=== PATIENT | female | born 1950 | race African-American/Black ===

== ENCOUNTER 2018-06-10 22:15 | Inpatient (IN) | payer MEDICARE ==
[~2018-06-10] VITALS: Ht 162.6 cm; Wt 87.1 kg
[~2018-06-10 22:15] MED LIST: ATOR20TA PO; CALC-25 PO; CHOL100022 PO; DIAZ10TA4 PO; FURO-151 MT; HYDR-4001 PO; LEVO175T7 MT; METO25TA6 PO; OXYC20TA56 PO
[2018-06-11] MEDS ORDERED: ONDANSETRON HCL 4MG/2ML INJ IV STA (00:37)
[2018-06-11] MEDS ORDERED: MORPHINE SULFATE 2 MG/ML CPJ (NOT FOR IM USE) IV ONE ×2 (00:45→05:00)
[2018-06-11 07:17] LABS: BASOPHILS % 0.6 % (0.0-2.0); EOSINOPHILS % 1.2 % (0.0-5.0); HEMATOCRIT. 33.4 % (36.0-48.0); LYMPHOCYTES % 21.4 % (20.0-50.0); MEAN CORPUSCULAR HEMOGLOBIN 26.4 pg (28.0-32.0); MEAN CORPUSCULAR VOLUME 80.6 fL (81.0-99.0); MEAN PLATELET VOLUME 6.9 fl (7.4-10.4); MONOCYTES % 5.4 % (2.0-8.0); NEUTROPHILS % 71.4 % (40.0-76.0); PLATELET 406 x1000/uL (130-400); RED BLOOD CELL COUNT 4.14 mill/uL (4.2-5.4); RED CELL DISTRIBUTION WIDTH 17.7 % (11.6-14.6)
[2018-06-11 07:21] LABS: CHLORIDE 103 mEq/L (98-107)
[2018-06-11] MEDS ORDERED: MAGNESIUM/ALUMINUM HYDROXIDE/SIMETHICONE 30ML UDC PO PRN (07:45)
[2018-06-11] MEDS ORDERED: IPRATROPIUM/ALBUTEROL 0.5-3(2.5)MG/3ML NEB INH PRN (07:45)
[2018-06-11] MEDS ORDERED: CLONIDINE 0.1MG TABLET PO PRN (07:45)
[2018-06-11] MEDS ORDERED: DOCUSATE SODIUM 100MG CAPSULE PO PRN (07:45)
[2018-06-11] MEDS ORDERED: ACETAMINOPHEN 650MG/20.3ML UDC GT PRN (07:45)
[2018-06-11] MEDS ORDERED: ACETAMINOPHEN 650MG SUPP PR PRN (07:45)
[2018-06-11] MEDS ORDERED: ONDANSETRON HCL 4MG/2ML INJ IV PRN (07:45)
[2018-06-11] MEDS ORDERED: NA PHOS,M-B/NA PHOS,DI-BA ENEMA 118ML PR PRN (07:45)
[2018-06-11] MEDS ORDERED: GUAIFENESIN 200MG/10ML SUGAR FREE UDC PO PRN (07:45)
[2018-06-11] MEDS ORDERED: DIPHENHYDRAMINE 50MG/ML VIAL IV PRN (07:45)
[2018-06-11 08:00] VITALS: BP_SYST 126; BP_SYST 127; BP_DIAS 74; BP_DIAS 78
[2018-06-11] MEDS: HYDROCODONE/ACETAMINOPHEN 5/325MG TABLET PO PRN ×4 (08:24→23:44)
[2018-06-11 09:00] VITALS: BP 126/74
[2018-06-11] MEDS: ENOXAPARIN 40MG/0.4ML SYR SUBCUT SCH (10:43)
[2018-06-11] MEDS: ACETAMINOPHEN 325MG TABLET PO PRN ×2 (10:46→17:13)
[2018-06-11 12:00] VITALS: BP 116/62
[2018-06-11] MEDS: SODIUM CHLORIDE 0.9% INJ 3ML FLUSH IVF SCH ×2 (13:41→22:00)
[2018-06-11 16:00] VITALS: BP 115/59
[2018-06-11] MEDS: PREDNISOLONE ACETATE 1% OPHTH DROPS 1ML LEFTEYE SCH ×2 (17:07→23:45)
[2018-06-11] MEDS: GENTAMICIN 0.3% OPHTH DROPS 5ML LEFTEYE SCH ×3 (17:07→23:48)
[2018-06-11 20:00] VITALS: BP 114/57
[2018-06-12 04:00] VITALS: BP_SYST 123; BP_SYST 137; BP_DIAS 72; BP_DIAS 82
[2018-06-12] MEDS: HYDROCODONE/ACETAMINOPHEN 5/325MG TABLET PO PRN ×3 (04:05→14:25)
[2018-06-12] MEDS: GENTAMICIN 0.3% OPHTH DROPS 5ML LEFTEYE SCH ×4 (04:06→16:08)
[2018-06-12] MEDS: SODIUM CHLORIDE 0.9% INJ 3ML FLUSH IVF SCH ×2 (06:00→14:00)
[2018-06-12] MEDS: PREDNISOLONE ACETATE 1% OPHTH DROPS 1ML LEFTEYE SCH ×2 (07:12→12:56)
[2018-06-12 08:00] VITALS: BP 135/78
[2018-06-12 08:02] LABS: BASOPHILS % 0.2 % (0.0-2.0); EOSINOPHILS % 1.5 % (0.0-5.0); HEMATOCRIT. 34.1 % (36.0-48.0); LYMPHOCYTES % 19.2 % (20.0-50.0); MEAN CORPUSCULAR HEMOGLOBIN 25.9 pg (28.0-32.0); MEAN CORPUSCULAR VOLUME 80.6 fL (81.0-99.0); MEAN PLATELET VOLUME 7.2 fl (7.4-10.4); MONOCYTES % 6.5 % (2.0-8.0); NEUTROPHILS % 72.6 % (40.0-76.0); PLATELET 404 x1000/uL (130-400); RED BLOOD CELL COUNT 4.23 mill/uL (4.2-5.4); RED CELL DISTRIBUTION WIDTH 17.4 % (11.6-14.6)
[2018-06-12] MEDS: ENOXAPARIN 40MG/0.4ML SYR SUBCUT SCH (08:33)
[2018-06-12 08:40] LABS: CHLORIDE 104 mEq/L (98-107)
[2018-06-12 08:50] LABS: LDL CHOLESTEROL 61 mg/dL (5-100)
[2018-06-12 08:52] LABS: HDL CHOLESTEROL 46 mg/dL (40-59)
[2018-06-12] MEDS: ACETAMINOPHEN 325MG TABLET PO PRN (11:58)
[2018-06-12 12:00] VITALS: BP 121/80
[2018-06-12 15:45] VITALS: BP 135/80
[2018-06-12 16:00] VITALS: BP 150/78
[2018-06-12] MEDS ORDERED: HYDROCODONE/ACETAMINOPHEN 10/325MG TABLET PO SCH (16:00)
[2018-06-12 16:09] VITALS: BP 150/78
[2018-06-12 17:46] LABS: BASOPHILS % 0.2 % (0.0-2.0); EOSINOPHILS % 2.5 % (0.0-5.0); HEMATOCRIT. 35.6 % (36.0-48.0); HEMOGLOBIN. 11.4 g/dL (12.0-16.0); LYMPHOCYTES % 22.8 % (20.0-50.0); MEAN CORPUSCULAR HEMOGLOBIN 26.1 pg (28.0-32.0); MEAN CORPUSCULAR VOLUME 81.6 fL (81.0-99.0); MEAN PLATELET VOLUME 7.4 fl (7.4-10.4); MONOCYTES % 9.6 % (2.0-8.0); NEUTROPHILS % 64.9 % (40.0-76.0); PLATELET 375 x1000/uL (130-400); RED BLOOD CELL COUNT 4.36 mill/uL (4.2-5.4); RED CELL DISTRIBUTION WIDTH 17.4 % (11.6-14.6)
[2018-06-12 18:04] LABS: CHLORIDE 103 mEq/L (98-107)
[2018-06-12 18:12] LABS: CREATINE KINASE 101 IU/L (26-192)
== END 2018-06-12 18:50 | DRG 552 ==
LOC: ER 22:15 → 6EST 06-11 06:40 → ENRESERV 06-11 08:08
PROVIDERS: ADMIT Family Medicine; ATTEND Family Medicine
DX: M54.9 Dorsalgia, unspecified (principal); I50.22 Chronic systolic (congestive) heart failure; M19.90 Unspecified osteoarthritis, unspecified site; E03.9 Hypothyroidism, unspecified; E66.9 Obesity, unspecified; W05.0XXA Fall from non-moving wheelchair, initial encounter; F41.9 Anxiety disorder, unspecified; I25.10 Atherosclerotic heart disease of native coronary artery without angina pectoris; E78.5 Hyperlipidemia, unspecified; E55.9 Vitamin D deficiency, unspecified; Z68.33 Body mass index [BMI] 33.0-33.9, adult; Z88.8 Allergy status to other drugs, medicaments and biological substances; Z91.012 Allergy to eggs; Y93.89 Activity, other specified; Y92.128 Other place in nursing home as the place of occurrence of the external cause; Y99.8 Other external cause status; Z79.899 Other long term (current) drug therapy
CPT/HCPCS: 36415; 71045; 72131; 72170; 72192; 73562; 73700; 80061; 82550; 93005; 96374; 96375; 96376; 97116; 97162; 97166; 97530; 99285; J1650; J2270; J2405